=== PATIENT | female | born 1990 | race Caucasian/White ===

== ENCOUNTER 2023-10-18 23:45 | Emergency (ER) | payer OTHER, SELFPAY ==
[2023-10-18 23:48] VITALS: BP 146/72; PULSE 109; O2SAT 96
[2023-10-19 00:01] VITALS: BP 117/55; PULSE 89; RESP 18; TEMP 36.9; O2SAT 97; BMI 27.8
[2023-10-19 06:05] VITALS: BP 113/66; PULSE 72; RESP 16; TEMP 36.9; O2SAT 99
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
[2023-10-19 09:37] VITALS: BP 111/66; PULSE 93; RESP 16; TEMP 36.9; O2SAT 99
== END 2023-10-19 09:38 | disposition home or self-care (01) ==
PROVIDERS: Emergency Provider Emergency Medicine; PCP Nurse Practitioner Family
DX: Z63.8 Other specified problems related to primary support group (principal)
CPT/HCPCS: 99282; 99284